=== PATIENT | female | born 1990 | race Caucasian/White ===

== ENCOUNTER → 2018-10-20 | Day surgery (SDC) | payer OTHER ==
--- NOTE | 2018-10-20 13:57 | RADIOLOGY REPORT (SQ) ---
EXAM DESCRIPTION: ARTHRO HIP INJ W/ANESTHESIA; FLUORO/NEEDLE PLACEMENT COMPLETED DATE/TIME: 10/20/2018 1:06 pm REASON FOR STUDY: PAIN IN R HIP M25.551 PAIN IN RIGHT HIP COMPARISON: None. FLUOROSCOPY TIME: 0.2 minutes 1 digital radiographic images saved to PACS. LIMITATIONS: None. PROCEDURE: Procedure, risks, benefits and alternatives explained to patient who then gave written c onsent. The right hip was marked and a time-out was called for correct marking verification. Entry site marked using fluoroscopic guidance. Hip prepped and draped using sterile technique. Local ane sthesia achieved using 6 1% lidocaine injection. 22 gauge spinal needle introduced into the joint sp melvin under direct fluoroscopic visualization. Non-ionic contrast instilled to confirm intra-articular position. Dilute gadolinium solution then injected. Needle removed and entry site covered with st erile bandage. No immediate complications noted. TECHNIQUE: Digital images acquired during fluoroscopy and stored on PACS. Patient immediately take n to the MR suite for additional imaging. INJECTION LOCATION: Right hip CONTRAST TYPE AND AMOUNT: 1 mL of Omnipaque 300 injected to confirm intra-articular needle placement followed by Dotarem/Saline mixture. IMPRESSION: SUCCESSFUL NEEDLE PLACEMENT AND INJECTION FOR RIGHT HIP MR ARTHROGRAM. COMMENT: Quality ID 145: Final reports for procedures using fluoroscopy that document radiation exp osure indices, or exposure time and number of fluorographic images (if radiation exposure indices are not available) TECHNICAL DOCUMENTATION: JOB ID: [id number] [employer]- All Rights Reserved Reading location - IP/workstation name: [facility]
--- NOTE | 2018-10-20 13:57 | RADIOLOGY REPORT (SQ) ---
EXAM DESCRIPTION: ARTHRO HIP INJ W/ANESTHESIA; FLUORO/NEEDLE PLACEMENT COMPLETED DATE/TIME: 10/20/2018 1:06 pm REASON FOR STUDY: PAIN IN R HIP M25.551 PAIN IN RIGHT HIP COMPARISON: None. FLUOROSCOPY TIME: 0.2 minutes 1 digital radiographic images saved to PACS. LIMITATIONS: None. PROCEDURE: Procedure, risks, benefits and alternatives explained to patient who then gave written c onsent. The right hip was marked and a time-out was called for correct marking verification. Entry site marked using fluoroscopic guidance. Hip prepped and draped using sterile technique. Local ane sthesia achieved using 6 1% lidocaine injection. 22 gauge spinal needle introduced into the joint sp melvin under direct fluoroscopic visualization. Non-ionic contrast instilled to confirm intra-articular position. Dilute gadolinium solution then injected. Needle removed and entry site covered with st erile bandage. No immediate complications noted. TECHNIQUE: Digital images acquired during fluoroscopy and stored on PACS. Patient immediately take n to the MR suite for additional imaging. INJECTION LOCATION: Right hip CONTRAST TYPE AND AMOUNT: 1 mL of Omnipaque 300 injected to confirm intra-articular needle placement followed by Dotarem/Saline mixture. IMPRESSION: SUCCESSFUL NEEDLE PLACEMENT AND INJECTION FOR RIGHT HIP MR ARTHROGRAM. COMMENT: Quality ID 145: Final reports for procedures using fluoroscopy that document radiation exp osure indices, or exposure time and number of fluorographic images (if radiation exposure indices are not available) TECHNICAL DOCUMENTATION: JOB ID: [id number] [employer]- All Rights Reserved Reading location - IP/workstation name: [facility]
--- NOTE | 2018-10-20 16:41 | RADIOLOGY REPORT (SQ) ---
EXAM DESCRIPTION: MRI RT LOWER JOINT WITH COMPLETED DATE/TIME: 10/20/2018 2:13 pm REASON FOR STUDY: PAIN IN R HIP M25.551 PAIN IN RIGHT HIP COMPARISON: None. TECHNIQUE: Post arthrogram imaging is performed using T1 and T1 and T2 fat saturated sequences of th e pelvis and specific hip of interest. LIMITATIONS: None. FINDINGS: JOINT DISTENSION: Adequate. No loose body. BONE MARROW: No edema. No marrow replacement. FEMORAL HEAD, NECK, AND ACETABULUM: No occult fracture. No osteophytes or subchondral cysts. Normal s phericity of femoral head/neck junction. No acetabular dysplasia. No evidence of femoroacetabular imp ingement. Focal area of cartilaginous thinning just adjacent to the fovea. Possibly related to the fovea. Small area of cartilaginous loss possible. PUBIC RAMI AND ISCHIUM: No occult fracture. SACRUM AND DAYRON: SI joints normal in signal. No occult fracture. EFFUSIONS: None. LABRUM AND CARTILAGE: No labral tear. Cartilage of normal thickness without delamination. MUSCLES AND SOFT TISSUES: Adductors and piriformis normal. Abductors and greater trochanteric bursa n ormal without edema or fluid. Iliopsoas bursa without fluid. Hamstring attachments without edema or t ear. PELVIC SOFT TISSUES: No masses or adenopathy. SCIATIC NERVE: Identified without masses. OTHER: No other significant finding. IMPRESSION: Normal variant versus small area cartilaginous loss adjacent to the fovea. Otherwise no rmal. TECHNICAL DOCUMENTATION: JOB ID: [id number] [employer]- All Rights Reserved Reading location - IP/workstation name: [facility]
== END ==
LOC: RAD 12:14 → EDSTATUS 13:00
PROVIDERS: ATTEND Orthopaedic Surgery
DX: M25.551 Pain in right hip (principal)
CPT/HCPCS: 73722; 77002; 27095; A9576